=== PATIENT | male | born 1945 | race Caucasian/White ===

== ENCOUNTER → 2024-08-15 | Outpatient (CLI) | payer MEDICARE ==
[2024-08-15 11:03] LABS: BASOPHILS # (AUTO) 0.03 K/uL (0.00-0.20); BASOPHILS % (AUTO) 0.4 % (0.0-5.0); EOSINOPHILS # (AUTO) 0.52 K/uL (0.00-0.70); EOSINOPHILS % (AUTO) 7.6 % (0.0-8.0); HEMATOCRIT 41.8 % (42-54); IMMATURE GRANULOCYTE ABSOLUTE 0.05 K/uL (0-1); LYMPHOCYTES # (AUTO) 2.5 K/uL (1.0-4.8); LYMPHOCYTES % (AUTO) 35.9 % (21.0-51.0); MEAN CORPUSCULAR HEMOGLOBIN 31.2 pg (27.0-33.0); MEAN CORPUSCULAR HGB CONC 34.2 g/dL (32.0-36.0); MEAN CORPUSCULAR VOLUME 91.3 fL (79-99); MONOCYTES # (AUTO) 0.7 K/uL (0.1-1.0); MONOCYTES % (AUTO) 9.9 % (3.0-13.0); NEUTROPHILS # (AUTO) 3.1 K/uL (1.8-7.7); NEUTROPHILS % (AUTO) 45.5 % (40.0-77.0); PLATELET COUNT (AUTO) 207 K/uL (130-400); RED BLOOD CELL COUNT(AUTO) 4.58 MIL/uL (4.50-6.20); RED CELL DISTRIBUTION WIDTH 15.3 % (11.0-15.5); WHITE BLOOD COUNT (AUTO) 6.9 K/uL (4.8-10.8)
[2024-08-15 11:22] LABS: ALBUMIN 2.4 g/dL (3.5-5.0); BILIRUBIN,TOTAL 5.9 mg/dL (0.2-1.0); CREATININE 0.9 mg/dL (0.5-1.3); POTASSIUM 3.5 mmol/L (3.5-5.1); TOTAL PROTEIN, SERUM 6.9 g/dL (6.0-8.3)
== END | disposition home or self-care (01) ==
LOC: LAB 10:17
PROVIDERS: ATTEND Internal Medicine Gastroenterology
DX: K80.50 Calculus of bile duct without cholangitis or cholecystitis without obstruction (principal); R19.7 Diarrhea, unspecified; R17 Unspecified jaundice
CPT/HCPCS: 36415; 80053; 82150; 83690; 85025; 87177; 87338; 87507

== ENCOUNTER 2024-08-21 08:53 | Day surgery (SDC) | payer MEDICARE ==
[~2024-08-21] VITALS: Ht 180.3 cm; Wt 86.2 kg
[2024-08-21] VITALS (14 sets, daily range): BP systolic 111–127; BP diastolic 65–80; PULSE 54–82; RESP 15–18; TEMP 96.8–97.6
[~2024-08-21 08:53] MED LIST: CETI10TA87 PO; DONE-53 PO; ESCI20TA38 PO; INDOMETHACIN 100 MG SUPP.RECT RC ONE; IOHEXOL-350 50ML VIAL IV ONE; MECLIZINE PO; OMEP40CA21 PO
[2024-08-21] MEDS: 0.9%NACL 1000ML 1,000 ML IV ONE (09:38)
[2024-08-21] MEDS ORDERED: TAMS-55 PO (09:39)
[2024-08-21] MEDS ORDERED: FENTanyl CITRate PF 50 MCG/1 ML 2ML VIAL ONE (11:38)
[2024-08-21] MEDS ORDERED: proPOFol 10 MG/ML 20ML VIAL IV ONE (11:38)
[2024-08-21] MEDS ORDERED: SUCCINYLCHOLINE CHLORIDE 20 MG/ML 10 ML VIAL ONE (11:38)
[2024-08-21] MEDS ORDERED: ondanSETRON 4MG INJ ONE (11:38)
[2024-08-21] MEDS ORDERED: dexaMETHasone SOD PHOSPHATE 10MG/ML 1ML VIAL ONE (11:39)
[2024-08-21] MEDS ORDERED: ePHEDrine SULFate 50 MG/ML AMPULE ONE (12:16)
== END 2024-08-21 14:10 | disposition home or self-care (01) ==
LOC: DAH 08:53 → ENDO 08:53
PROVIDERS: ATTEND Internal Medicine Gastroenterology
DX: K80.50 Calculus of bile duct without cholangitis or cholecystitis without obstruction (principal); K83.8 Other specified diseases of biliary tract; R93.2 Abnormal findings on diagnostic imaging of liver and biliary tract; K21.9 Gastro-esophageal reflux disease without esophagitis; F41.9 Anxiety disorder, unspecified; F32.A Depression, unspecified; R17 Unspecified jaundice; M19.90 Unspecified osteoarthritis, unspecified site; R19.7 Diarrhea, unspecified; R63.0 Anorexia; M34.1 CR(E)ST syndrome; Z98.890 Other specified postprocedural states; Z79.899 Other long term (current) drug therapy; Z87.898 Personal history of other specified conditions
CPT/HCPCS: 43276; 43273; 74328; J3010; J1100; J0330; J7030 ×2; J3490; J2704; J2405; Q9967; A4215; A4223; A4657; A7002; A4222; A4221; A4663; A4606; C1769; C2625